=== PATIENT | male | born 1970 | race Caucasian/White ===

== ENCOUNTER 2017-12-04 11:42 | Emergency (ER) | payer SELFPAY ==
[~2017-12-04] VITALS: Ht 172.7 cm; Wt 78.0 kg
[2017-12-04 11:52] VITALS: BP 148/93; PULSE 78; RESP 18; TEMP 98; O2SAT 95
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
[2017-12-04] MEDS ORDERED: IBUP-232 PO (14:19)
[2017-12-04 14:30] VITALS: BP 138/87
[2017-12-04] MEDS ORDERED: IBUPROFEN 800 MG TAB PO ONE (14:30)
== END 2017-12-04 14:30 | disposition home or self-care (01) ==
LOC: NEDAMB 11:42
DX: S60.222A Contusion of left hand, initial encounter (principal); S60.221A Contusion of right hand, initial encounter; Z88.5 Allergy status to narcotic agent; X58.XXXA Exposure to other specified factors, initial encounter
CPT/HCPCS: 73130; 99283